=== PATIENT | female | born 1990 | race Caucasian/White ===

== ENCOUNTER 2024-04-26 10:13 | Emergency (ER) | payer SELFPAY ==
[~2024-04-26] VITALS: Ht 167.6 cm; Wt 73.0 kg
[2024-04-26 10:27] VITALS: TEMP 97.9; O2SAT 98
[2024-04-26 10:54] LABS: BASOPHILS % 0.3 % (0.0-2.0); EOSINOPHILS % 0.4 % (0.0-5.0); HEMATOCRIT. 39.4 % (36.0-48.0); HEMOGLOBIN. 13.4 g/dL (12.0-16.0); LYMPHOCYTES % 16.9 % (20.0-50.0); MEAN CORPUSCULAR HEMOGLOBIN 30.2 pg (28.0-32.0); MEAN CORPUSCULAR VOLUME 88.9 fL (81.0-99.0); MEAN PLATELET VOLUME 8.6 fl (7.4-10.4); MONOCYTES % 3.9 % (2.0-8.0); NEUTROPHILS % 78.5 % (40.0-76.0); PLATELET 255 x1000/uL (130-400); RED BLOOD CELL COUNT 4.43 mill/uL (4.2-5.4); RED CELL DISTRIBUTION WIDTH 12.5 % (11.6-14.6)
[2024-04-26 11:03] LABS: INR 0.9; PROTHROMBIN TIME 10.6 sec (9.6-11.0)
[2024-04-26 11:08] LABS: CHLORIDE 111 mEq/L (98-107); HCG SCREEN NEGATIVE; SODIUM 141 mEq/L (136-145)
[2024-04-26 11:10] LABS: CALCIUM 9.5 mg/dL (8.7-10.4); CARBON DIOXIDE 22 mEq/L (21-32)
[2024-04-26 11:15] LABS: CREATININE 0.9 mg/dL (0.6-1.0); GLUCOSE 114 mg/dL (70-105); UREA NITROGEN BLOOD 9 mg/dL (9-23)
[2024-04-26 11:17] LABS: ALANINE AMINOTRANSFERASE 13 IU/L (10-49); ALBUMIN 4.3 g/dL (3.2-4.8); ASPARTATE AMINOTRANSFERASE 18 IU/L (<34); BILIRUBIN DIRECT 0.2 mg/dL (<=3.0); BILIRUBIN TOTAL 0.8 mg/dL (0.1-1.0)
[2024-04-26 11:17] LABS: CLARITY URINE CLEAR (CLEAR); COLOR URINE DARK YELLOW (YELLOW); GLUCOSE URINE NEGATIVE (NEGATIVE); KETONES URINE NEGATIVE (NEGATIVE); LEUKOCYTE ESTERASE URINE 3+ (NEGATIVE); NITRITE URINE POSITIVE (NEGATIVE); OCCULT BLOOD URINE 1+ (NEGATIVE); PH URINE 5.5 (4.5-8.0); PROTEIN URINE NEGATIVE (NEGATIVE); SPECIFIC GRAVITY URINE 1.005 (1.005-1.030)
[2024-04-26 11:18] LABS: PROTEIN TOTAL 7.3 g/dL (6.0-8.3)
[2024-04-26 11:28] LABS: BACTERIA URINE 1+; WBC URINE 25-50 /hpf (0-2)
[2024-04-26 11:29] LABS: SQUAMOUS EPITHELIAL CELL URINE FEW /lpf (RARE/1+)
[2024-04-26] MEDS ORDERED: KETOROLAC 30MG/ML INJ (FOR IM ONLY) IM ONE (15:00)
[2024-04-26] MEDS: KETOROLAC 30MG/ML VIAL IM NR (15:29)
[2024-04-26] MEDS ORDERED: CEFP200T13 MT (15:37)
[2024-04-26] MEDS: CEFTRIAXONE SODIUM 1G VIAL IM NR (16:01)
[2024-04-26] MEDS: LIDOCAINE HCL 1% 20ML VIAL INFIL NR (16:01)
[2024-04-26 16:06] VITALS: BP 116/80; PULSE 80; RESP 16; O2SAT 99
== END 2024-04-26 16:07 | disposition home or self-care (01) ==
LOC: ER 10:13
DX: N12 Tubulo-interstitial nephritis, not specified as acute or chronic (principal); Z87.442 Personal history of urinary calculi
CPT/HCPCS: 80076; 80048; 81003; 81025; 84703; 83690; 85025; 85610; 87086; 36415; 74176; 96372; 99285; J0696; J1885; Z7610 ×2